=== PATIENT | female | born 1945 | race Caucasian/White ===

== ENCOUNTER 2018-01-05 16:53 | Emergency (ER) | payer MEDICARE, MEDICAID ==
[~2018-01-05] VITALS: Ht 157.5 cm; Wt 63.0 kg
[~2018-01-05 16:53] MED LIST: FAMO20TA7 PO; LISI40TA PO; LISI5TAB7 PO; NITR100C PO; ONDA4TAB13 SL; OXYC-307 PO; SERT50TA PO; SIMV40TA PO
[2018-01-05] MEDS ORDERED: ONDANSETRON ODT 4 MG ONE (17:52)
[2018-01-05] MEDS ORDERED: HYDROmorphone 2 MG/ML, 1ML ONE (17:53)
[2018-01-05] MEDS ORDERED: HYDROmorphone 1 MG/ML, 1ML IM ONE (18:00)
[2018-01-05] MEDS ORDERED: ONDANSETRON ODT 4 MG PO ONE (18:00)
[2018-01-05 20:27] VITALS: BP 126/79
== END 2018-01-05 20:30 | disposition home or self-care (01) ==
LOC: ED 20:24
DX: G89.29 Other chronic pain (principal); M25.551 Pain in right hip; F11.23 Opioid dependence with withdrawal; E11.9 Type 2 diabetes mellitus without complications; E78.5 Hyperlipidemia, unspecified; I10 Essential (primary) hypertension
CPT/HCPCS: 73502; 96372; 99284; J1170; Q0162

== ENCOUNTER 2019-02-20 13:09 | Emergency (ER) | payer MEDICARE, MEDICAID ==
[~2019-02-20] VITALS: Ht 157.5 cm; Wt 66.4 kg
[2019-02-20 13:53] VITALS: BP 179/93
[2019-02-20] MEDS ORDERED: ONDANSETRON ODT 4 MG PO ONE (15:00)
[2019-02-20] MEDS ORDERED: HYDROmorphone 1 MG/ML, 1ML INJ IM ONE (15:00)
[2019-02-20] MEDS ORDERED: OXYcodone/APAP 10/325MG TABLET ONE (15:23)
[2019-02-20] MEDS ORDERED: OXYcodone/APAP 10/325MG TABLET PO ONE (15:30)
== END 2019-02-20 15:36 | disposition home or self-care (01) ==
LOC: ED 15:32
DX: S39.012A Strain of muscle, fascia and tendon of lower back, initial encounter (principal); I10 Essential (primary) hypertension; E11.9 Type 2 diabetes mellitus without complications; X58.XXXA Exposure to other specified factors, initial encounter; Y93.89 Activity, other specified; Y92.89 Other specified places as the place of occurrence of the external cause; Y99.8 Other external cause status
CPT/HCPCS: 72110; 99283

== ENCOUNTER 2019-04-09 17:51 | Emergency (ER) | payer MEDICARE, MEDICAID ==
[~2019-04-09] VITALS: Ht 160 cm; Wt 74.0 kg
[2019-04-09 17:55] VITALS: BP 134/83
[2019-04-09] MEDS ORDERED: OXYC-307 PO (18:49)
[2019-04-09] MEDS ORDERED: OXYcodone/APAP 10/325MG TABLET PO ONE (19:00)
[2019-04-09] MEDS ORDERED: ONDANSETRON ODT 4 MG PO ONE (19:00)
[2019-04-09] MEDS ORDERED: OXYcodone/APAP 10/325MG TABLET ONE (19:07)
[2019-04-09] MEDS ORDERED: ONDANSETRON ODT 4 MG ONE (19:07)
[2019-04-09 19:09] LABS: BASOPHILS # (AUTO) 0.05 x10^3/uL (0-0.1); BASOPHILS % (AUTO) 1 % (0-1); EOSINOPHILS # (AUTO) 0.02 x10^3/uL (0-0.4); EOSINOPHILS % (AUTO) 0 % (1-7); LYMPHOCYTES # (AUTO) 1.62 x10^3/uL (1-3.4); LYMPHOCYTES % (AUTO) 26 % (22-44); MD NO; MEAN CORPUSCULAR HEMOGLOBIN 31.1 pg (27.0-34.8); MEAN CORPUSCULAR HGB CONC 33.8 g/dL (32.4-35.8); MEAN CORPUSCULAR VOLUME 92.1 fL (80-100); MEAN PLATELET VOLUME 11.1 fL (7.4-10.4); MONOCYTES # (AUTO) 0.62 x10^3/uL (0.2-0.8); MONOCYTES % (AUTO) 10 % (2-9); NEUTROPHILS # (AUTO) 3.93 x10^3/uL (1.8-6.8); NEUTROPHILS % (AUTO) 63 % (42-75); PLATELET COUNT 159 x10^3/uL (130-400); RED BLOOD COUNT 4.66 x10^6/uL (3.82-5.3); RED CELL DISTRIBUTION WIDTH 13.4 % (9.6-15.2)
[2019-04-09 19:18] LABS: ALBUMIN 3.9 g/dL (3.4-5.0); ANION GAP 8 mmol/L (5-15); CALCIUM 9.8 mg/dL (8.5-10.1); CHLORIDE 110 mmol/L (98-107); CREATININE 0.64 mg/dL (0.55-1.02)
[2019-04-09 20:18] LABS: MICROSCOPIC INDICATED
[2019-04-09 20:19] LABS: CULTURE INDICATED? YES
== END 2019-04-09 21:40 | disposition home or self-care (01) ==
LOC: ED 21:00
DX: S39.012A Strain of muscle, fascia and tendon of lower back, initial encounter (principal); G89.29 Other chronic pain; R10.2 Pelvic and perineal pain; I10 Essential (primary) hypertension; E11.9 Type 2 diabetes mellitus without complications; E78.5 Hyperlipidemia, unspecified; X58.XXXA Exposure to other specified factors, initial encounter; Y93.89 Activity, other specified; Y92.89 Other specified places as the place of occurrence of the external cause; Y99.8 Other external cause status
CPT/HCPCS: 36415; 80048; 81001; 82040; 85025; 87086; 99283; Q0162

== ENCOUNTER 2019-07-17 10:03 | Emergency (ER) | payer MEDICARE, MEDICAID ==
[~2019-07-17] VITALS: Ht 157.5 cm; Wt 68.2 kg
[2019-07-17] MEDS ORDERED: GABAPENTIN PO (10:11)
--- NOTE | 2019-07-17 10:12 | NUR ---
PT BIB [facility] FOR BLOOD IN URINE AND IN UNDERWEAR. PT NAD, RESP WNL, FCS NO SOB NOTED, VSS. SUAD KUNZ AT FOR EVAL AND DISCUSSING POC. PT RESTING IN [facility].
[2019-07-17] MEDS ORDERED: OXYcodone/APAP 5/325MG TABLET ONE (10:22)
[2019-07-17] MEDS ORDERED: OXYcodone/APAP 5/325MG TABLET PO ONE (10:30)
--- NOTE | 2019-07-17 10:34 | NUR ---
UA SENT, PT RESTING IN [facility], RESP WNL, VSS, FCS NO SOB, P/W/D. GIVEN WARM BLANEKT AND LIGHTS DIMMED FOR COMFORT, CALL LIGHT ON LAP. WCTM.
--- NOTE | 2019-07-17 11:02 | NUR ---
PT LAYING IN GURNEY, NAD, FCS NO SOB, P/W/D, VSS, RESP WNL, EYES OPEN, CALL LIGHT ON LAP. PT STATES THAT PAIN IS DECREASED AFTER BEING MEDICATED PER MAR. SEE MAR FOR INTERVENTION DETAILS.
[2019-07-17 11:07] LABS: CULTURE INDICATED? YES; MICROSCOPIC INDICATED
[2019-07-17 11:28] LABS: BASOPHILS # (AUTO) 0.04 x10^3/uL (0-0.1); BASOPHILS % (AUTO) 1 % (0-1); EOSINOPHILS # (AUTO) 0.14 x10^3/uL (0-0.4); EOSINOPHILS % (AUTO) 2 % (1-7); LYMPHOCYTES # (AUTO) 1.63 x10^3/uL (1-3.4); LYMPHOCYTES % (AUTO) 20 % (22-44); MD NO; MEAN CORPUSCULAR VOLUME 91.3 fL (80-100); MEAN PLATELET VOLUME 10.7 fL (7.4-10.4); MONOCYTES # (AUTO) 0.77 x10^3/uL (0.2-0.8); MONOCYTES % (AUTO) 9 % (2-9); NEUTROPHILS # (AUTO) 5.56 x10^3/uL (1.8-6.8); NEUTROPHILS % (AUTO) 68 % (42-75); PLATELET COUNT 122 x10^3/uL (130-400); RED BLOOD COUNT 4.24 x10^6/uL (3.82-5.3)
[2019-07-17 11:40] LABS: ALBUMIN 3.7 g/dL (3.4-5.0); ANION GAP 9 mmol/L (5-15); CALCIUM 9.1 mg/dL (8.5-10.1); CHLORIDE 108 mmol/L (98-107)
[2019-07-17 11:43] LABS: ALANINE AMINOTRANSFERASE 33 U/L (12-78); ALKALINE PHOSPHATASE 90 U/L (45-117); BILIRUBIN,TOTAL 0.8 mg/dL (0.2-1.0); CREATININE 0.96 mg/dL (0.55-1.02)
[2019-07-17] MEDS ORDERED: POTASSIUM CHLORIDE 20 MEQ TAB.ER.PRT PO ONE (12:00)
[2019-07-17] MEDS ORDERED: POTASSIUM CHLORIDE 20 MEQ TAB.ER.PRT ONE (12:04)
[2019-07-17 12:08] VITALS: BP 128/72
[2019-07-17] MEDS ORDERED: IBUPROFEN 200 MG TABLET ONE (12:14)
[2019-07-17] MEDS ORDERED: PHENAZOPYRIDINE 200 MG TABLET ONE (12:14)
--- NOTE | 2019-07-17 12:21 | NUR ---
Patient/Caregiver given discharge instructions and they have confirmed that they understand the instructions. Patient ambulatory with steady gait. Given snacks per pt request, pt is calling friend for a ride home. NAD , P/W/D, RESP WNL, VSS
[2019-07-17] MEDS ORDERED: IBUPROFEN 200 MG TABLET PO ONE (12:30)
[2019-07-17] MEDS ORDERED: PHENAZOPYRIDINE 200 MG TABLET PO ONE (12:30)
--- NOTE | 2019-07-17 12:42 | NUR ---
given taxi voucher to get home.
== END 2019-07-17 12:43 | disposition home or self-care (01) ==
LOC: ED 10:24
DX: N30.01 Acute cystitis with hematuria (principal); M54.5 Low back pain; R30.0 Dysuria; R10.30 Lower abdominal pain, unspecified; I10 Essential (primary) hypertension; E11.9 Type 2 diabetes mellitus without complications
CPT/HCPCS: 36415; 80053; 81001; 85025; 87086; 87186; 99284

== ENCOUNTER 2019-08-13 13:47 | Emergency (ER) | payer MEDICARE, MEDICAID ==
[~2019-08-13] VITALS: Ht 157.5 cm; Wt 67.0 kg
[~2019-08-13 13:47] MED LIST changes: +GABAPENTIN PO
--- NOTE | 2019-08-13 14:32 | NUR ---
TO ROOM FROM LOBBY
--- NOTE | 2019-08-13 14:52 | NUR ---
THIS PT IS COMING FROM HOME, WHERE SHE LIVES ALONE, SHE CALLED EMS TODAY. 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
[2019-08-13] MEDS ORDERED: OXYcodone/APAP 5/325MG TABLET ONE (15:49)
--- NOTE | 2019-08-13 15:57 | NUR ---
PT AMBULATORY TO BATHROOM, STEADY GAIT.
[2019-08-13 15:58] LABS: BASOPHILS # (AUTO) 0.02 x10^3/uL (0-0.1); BASOPHILS % (AUTO) 0 % (0-1); EOSINOPHILS # (AUTO) 0.16 x10^3/uL (0-0.4); EOSINOPHILS % (AUTO) 3 % (1-7); LYMPHOCYTES % (AUTO) 20 % (22-44); MD NO; MEAN CORPUSCULAR HEMOGLOBIN 31.4 pg (27.0-34.8); MEAN CORPUSCULAR HGB CONC 34.4 g/dL (32.4-35.8); MEAN CORPUSCULAR VOLUME 91.1 fL (80-100); MEAN PLATELET VOLUME 11.2 fL (7.4-10.4); MONOCYTES # (AUTO) 0.49 x10^3/uL (0.2-0.8); MONOCYTES % (AUTO) 8 % (2-9); NEUTROPHILS # (AUTO) 4.21 x10^3/uL (1.8-6.8); NEUTROPHILS % (AUTO) 69 % (42-75); PLATELET COUNT 130 x10^3/uL (130-400); RED BLOOD COUNT 4.05 x10^6/uL (3.82-5.3); RED CELL DISTRIBUTION WIDTH 13.4 % (9.6-15.2)
[2019-08-13] MEDS ORDERED: OXYcodone/APAP 5/325MG TABLET PO ONE (16:00)
[2019-08-13 16:09] LABS: ALANINE AMINOTRANSFERASE 31 U/L (12-78); ALBUMIN 3.6 g/dL (3.4-5.0); ANION GAP 8 mmol/L (5-15); CALCIUM 9.3 mg/dL (8.5-10.1); CHLORIDE 110 mmol/L (98-107); CREATININE 0.79 mg/dL (0.55-1.02)
--- NOTE | 2019-08-13 16:09 | NUR ---
PT AMBULATORY BACK TO BED, STEADY GAIT. PT STATES "I CAN'T EVEN WALK."
[2019-08-13 16:12] LABS: ALKALINE PHOSPHATASE 91 U/L (45-117); BILIRUBIN,TOTAL 0.5 mg/dL (0.2-1.0); TOTAL PROTEIN 6.7 g/dL (6.4-8.2)
--- NOTE | 2019-08-13 16:17 | NUR ---
PT LAYING IN BED, RESPIRATIONS EVEN AND UNLABORED, NO SIGNS OF DISTRESS, CALL LIGHT WITHIN REACH.
[2019-08-13 16:42] LABS: MICROSCOPIC INDICATED
--- NOTE | 2019-08-13 17:04 | NUR ---
PT LAYING IN BED, UPDATED ON POC. PT STATES "IF THEY'RE NOT GOING GIVE ME ANOTHER 5 (OF PERCOCET) F IT, I'M NOT EVER COMING BACK HERE, THIS IS RIDICULOUS."
[2019-08-13 17:05] VITALS: BP 176/86
[2019-08-13] MEDS ORDERED: POTASSIUM CHLORIDE 20 MEQ TAB.ER.PRT PO ONE (17:30)
--- NOTE | 2019-08-13 17:35 | NUR ---
PT AMBULATORY TO BATHROOM.
[2019-08-13] MEDS ORDERED: POTASSIUM CHLORIDE 20 MEQ TAB.ER.PRT ONE (17:52)
== END 2019-08-13 18:14 | disposition home or self-care (01) ==
LOC: ED 15:36
DX: E87.6 Hypokalemia (principal); R10.9 Unspecified abdominal pain; R31.29 Other microscopic hematuria; R30.0 Dysuria; G89.29 Other chronic pain; E78.5 Hyperlipidemia, unspecified; I10 Essential (primary) hypertension; E11.9 Type 2 diabetes mellitus without complications; R94.31 Abnormal electrocardiogram [ECG] [EKG]
CPT/HCPCS: 36415; 80053; 81001; 85025; 87077; 87086; 87186; 93005; 99284

== ENCOUNTER 2019-09-29 17:09 | Emergency (ER) | payer MEDICARE, MEDICAID ==
[~2019-09-29] VITALS: Ht 157.5 cm; Wt 70.0 kg
--- NOTE | 2019-09-29 17:17 | NUR ---
PT BIB EMS FOR LOW BACK PAIN. SAYS SHE "JERKED" AND FELT A STRAIN. PT AMBUALTED FROM EMS [facility] TO [facility] WITH CANE. PT SAYS SHE BROKE HER BACK YEARS AGO AND IT NEVER HEALED. PT DENIES LOC OR FALLING TO GROUND. PT IS RESTING IN [facility]. CONNECTED TO MONITORING EQUIPMENT. MD IS BEDSIDE FOR ASSESSMENT.
[2019-09-29] MEDS ORDERED: METHOCARBAMOL 750 MG TABLET ONE (17:36)
[2019-09-29] MEDS ORDERED: OXYcodone/APAP 5/325MG TABLET ONE (17:38)
[2019-09-29] MEDS ORDERED: IBUP-1222 PO (17:47)
--- NOTE | 2019-09-29 17:50 | NUR ---
Tech at bedside for EKG
--- NOTE | 2019-09-29 17:57 | NUR ---
Pt able to ambulate from bed to bathroom without issue. Using cane for stability
[2019-09-29] MEDS ORDERED: METHOCARBAMOL 750 MG TABLET PO ONE (18:00)
[2019-09-29] MEDS ORDERED: SODIUM CHLORIDE FLUSH 10ML SYR IVF ONE (18:00)
[2019-09-29] MEDS ORDERED: OXYcodone/APAP 5/325MG TABLET PO ONE (18:00)
[2019-09-29 18:03] LABS: BASOPHILS # (AUTO) 0.03 x10^3/uL (0-0.1); BASOPHILS % (AUTO) 1 % (0-1); EOSINOPHILS # (AUTO) 0.11 x10^3/uL (0-0.4); EOSINOPHILS % (AUTO) 2 % (1-7); LYMPHOCYTES # (AUTO) 1.05 x10^3/uL (1-3.4); LYMPHOCYTES % (AUTO) 18 % (22-44); MD NO; MEAN CORPUSCULAR HEMOGLOBIN 30.1 pg (27.0-34.8); MEAN CORPUSCULAR HGB CONC 33.4 g/dL (32.4-35.8); MEAN CORPUSCULAR VOLUME 90.3 fL (80-100); MEAN PLATELET VOLUME 11.3 fL (7.4-10.4); MONOCYTES # (AUTO) 0.46 x10^3/uL (0.2-0.8); MONOCYTES % (AUTO) 8 % (2-9); NEUTROPHILS % (AUTO) 72 % (42-75); PLATELET COUNT 109 x10^3/uL (130-400); RED BLOOD COUNT 3.81 x10^6/uL (3.82-5.3); RED CELL DISTRIBUTION WIDTH 13.5 % (9.6-15.2)
[2019-09-29 18:04] LABS: ALBUMIN 3.8 g/dL (3.4-5.0); ANION GAP 5 mmol/L (5-15); CALCIUM 8.8 mg/dL (8.5-10.1); CHLORIDE 112 mmol/L (98-107)
[2019-09-29 18:07] LABS: ALANINE AMINOTRANSFERASE 36 U/L (12-78); ALKALINE PHOSPHATASE 79 U/L (45-117); BILIRUBIN,TOTAL 0.5 mg/dL (0.2-1.0); CREATININE 0.75 mg/dL (0.55-1.02); TOTAL PROTEIN 6.7 g/dL (6.4-8.2)
[2019-09-29 18:25] VITALS: BP 128/67
[2019-09-29 18:25] LABS: MICROSCOPIC AUTO
--- NOTE | 2019-09-29 18:47 | NUR ---
Pt resting, no complaints
[2019-09-29] MEDS ORDERED: CEFTRIAXONE 1,000 MG IM ONE (19:00)
[2019-09-29] MEDS ORDERED: CEFTRIAXONE 1,000 MG ONE (19:11)
== END 2019-09-29 19:35 | disposition home or self-care (01) ==
LOC: ED 19:00
DX: N30.01 Acute cystitis with hematuria (principal); M54.5 Low back pain; R00.1 Bradycardia, unspecified
CPT/HCPCS: 36415; 80053; 81001; 85025; 87077; 87086; 93005; 96372; 99284; J0696; 87186

== ENCOUNTER 2019-10-23 10:43 | Emergency (ER) | payer MEDICARE, MEDICAID ==
[~2019-10-23] VITALS: Ht 157.5 cm; Wt 66.0 kg
[~2019-10-23 10:43] MED LIST changes: +IBUP-1222 PO
--- NOTE | 2019-10-23 10:48 | NUR ---
PT C/O LOW BACK PAIN, CHRONIC. WORSENED YESTERDAY. HAS BEEN MOSTLY SEDENTARY. IBUPROFEN AT 0630 TODAY. HAS [facility] [place] APPT END OF OCTOBER; APPT "ABOUT A MONTH AGO". PT STATES "I HAVE A BROKEN BACK", "I GOT SHOTS IN MY SPINE AND NOW I CAN WALK AGAIN" USES A CANE; INJECTIONS WERE NOT DONE THIS YEAR. PT STATES SHE HURT HER BACK 2 YEARS AGO. REPORTS HX OF HIP FX BILAT. PT STATES SHE'S BEEN GETTING PERCOCET FROM ED STAFF FOR PAIN FROM PREVIOUS VISITS.
[2019-10-23] MEDS ORDERED: LORA-445 PO (10:57)
[2019-10-23] MEDS ORDERED: MELO7.5T31 PO (10:57)
[2019-10-23] MEDS ORDERED: GABA-826 PO (10:57)
[2019-10-23] MEDS ORDERED: OXYcodone/APAP 5/325MG TABLET PO ONE (11:00)
[2019-10-23] MEDS ORDERED: OXYcodone/APAP 5/325MG TABLET ONE (11:06)
--- NOTE | 2019-10-23 11:07 | NUR ---
AMBULATORY TO & FROM [facility] W/OUT INCIDENT; GAIT SHUFFLING USING OWN CANE. PT STATES "I CAN'T PEE".
--- NOTE | 2019-10-23 11:10 | NUR ---
PERCOCET GIVEN PER EMAR
--- NOTE | 2019-10-23 11:14 | NUR ---
PT REQUESTED "A SMALL PRESCRIPTION" FOR PERCOCET. ERP WILL BE NOTIFIED.
[2019-10-23 12:13] LABS: MICROSCOPIC INDICATED
[2019-10-23 13:00] VITALS: BP 151/94
== END 2019-10-23 13:35 | disposition home or self-care (01) ==
LOC: ED 11:10
DX: G89.29 Other chronic pain (principal); M47.9 Spondylosis, unspecified; M51.36 Other intervertebral disc degeneration, lumbar region; N30.00 Acute cystitis without hematuria
CPT/HCPCS: 81001; 87077; 87086; 99283

== ENCOUNTER 2019-11-11 16:42 | Emergency (ER) | payer MEDICARE, MEDICAID ==
[~2019-11-11] VITALS: Ht 157.5 cm; Wt 65.0 kg
[~2019-11-11 16:42] MED LIST changes: +GABA-826 PO; +LORA-445 PO; +MELO7.5T31 PO
--- NOTE | 2019-11-11 16:58 | NUR ---
1L NS BOLUS STARTED.
[2019-11-11] MEDS ORDERED: ONDANSETRON 2MG/ML, 2ML IVPush ONE (17:00)
[2019-11-11] MEDS ORDERED: SODIUM CHLORIDE 0.9% 1,000ML IVBOLUS ONE ×2 (17:00→18:30)
[2019-11-11] MEDS ORDERED: SODIUM CHLORIDE FLUSH 10ML SYR IVF ONE (17:00)
--- NOTE | 2019-11-11 17:03 | NUR ---
FSBS 106.
--- NOTE | 2019-11-11 17:03 | NUR ---
PT BIB EMS FOR NAUSEA AND WEAKNESS X 2 DAYS. PT APPEARS TO BE DROWSEY AND SLURS SOME OF HER WORDS. 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 A 1 LITER BOLUS IS INFUSING AT THIS TIME. PT WAS RECENTYL TREATED FOR UTI. EKG COMPLETE. LABS DRAWN. X RAY TAKEN. PT DENIES TAKING BETA BLOCKERS
[2019-11-11] MEDS ORDERED: ONDANSETRON 2MG/ML, 2ML ONE (17:09)
[2019-11-11] MEDS ORDERED: ACETAMINOPHEN 500 MG TABLET ONE (17:09)
[2019-11-11] MEDS: ACETAMINOPHEN 500 MG TABLET PO ONE ×2 (17:10→17:12)
--- NOTE | 2019-11-11 17:13 | NUR ---
PT REFUSES TO TAKE TYLENOL, STATES SHE CAN'T SWALLOW AT THIS TIME. PT UNWILLING TO TRY TO DRINK WATER AT THIS TIME.
[2019-11-11 17:23] LABS: BASOPHILS # (AUTO) 0.04 x10^3/uL (0-0.1); BASOPHILS % (AUTO) 1 % (0-1); EOSINOPHILS # (AUTO) 0.09 x10^3/uL (0-0.4); EOSINOPHILS % (AUTO) 2 % (1-7); LYMPHOCYTES # (AUTO) 1.22 x10^3/uL (1-3.4); LYMPHOCYTES % (AUTO) 25 % (22-44); MD NO; MEAN CORPUSCULAR HEMOGLOBIN 31.1 pg (27.0-34.8); MEAN CORPUSCULAR HGB CONC 34.3 g/dL (32.4-35.8); MEAN CORPUSCULAR VOLUME 90.6 fL (80-100); MEAN PLATELET VOLUME 10.3 fL (7.4-10.4); MONOCYTES % (AUTO) 10 % (2-9); NEUTROPHILS % (AUTO) 63 % (42-75); PLATELET COUNT 106 x10^3/uL (130-400); RED BLOOD COUNT 3.34 x10^6/uL (3.82-5.3); RED CELL DISTRIBUTION WIDTH 13.8 % (9.6-15.2)
--- NOTE | 2019-11-11 17:29 | NUR ---
URINE SAMPLE COLLECTED.
[2019-11-11 17:31] LABS: ALANINE AMINOTRANSFERASE 28 U/L (12-78); ALBUMIN 3.4 g/dL (3.4-5.0); ANION GAP 8 mmol/L (5-15); CALCIUM 8.5 mg/dL (8.5-10.1); CHLORIDE 109 mmol/L (98-107); CREATININE 0.71 mg/dL (0.55-1.02)
[2019-11-11 17:35] LABS: ALKALINE PHOSPHATASE 66 U/L (45-117); BILIRUBIN,TOTAL 0.7 mg/dL (0.2-1.0); TOTAL PROTEIN 6.2 g/dL (6.4-8.2); TROPONIN I < 0.015 ng/mL (0.000-0.045)
[2019-11-11 17:46] LABS: MICROSCOPIC NOT IND
--- NOTE | 2019-11-11 18:06 | NUR ---
BP 82/40
[2019-11-11] MEDS ORDERED: KETOROLAC 30 MG/1 ML ONE (18:10)
--- NOTE | 2019-11-11 18:11 | NUR ---
BP 82/40, PT REPORTS BACK PAIN HOWEVER STILL REFUSING TYLENOL, REPORTED TO ERMD. PER ERMD GIVE 1L NS BOLUS AND 15MG IV TORADOL.
[2019-11-11 18:21] VITALS: BP 97/53
[2019-11-11] MEDS ORDERED: KETOROLAC 30 MG/1 ML IVPush ONE (18:30)
[2019-11-11] MEDS ORDERED: OXYC-302 PO (18:33)
--- NOTE | 2019-11-11 18:45 | NUR ---
PT WISHES TO LEAVE AGAINST MEDICAL ADVICE. AMA FORM SIGNED BY PT.
--- NOTE | 2019-11-11 19:18 | NUR ---
PT WHEELED OUT TO DC DESK, PT STATES SHE WILL CALL [facility] FOR A RIDE HOME.
== END 2019-11-11 19:35 | disposition left against medical advice (07) ==
LOC: ED 19:28
DX: I95.0 Idiopathic hypotension (principal); R53.1 Weakness; R11.0 Nausea; R00.1 Bradycardia, unspecified; R50.9 Fever, unspecified; I10 Essential (primary) hypertension; E11.9 Type 2 diabetes mellitus without complications; G89.29 Other chronic pain
CPT/HCPCS: 71045; 80053; 81003; 82962; 83605; 83735; 84145; 84484; 85025; 93005; 96361; 96374; 96375; 99285; J1885; J2405; J7030

== ENCOUNTER 2020-01-29 13:12 | Observation (INO) | payer MEDICARE, MEDICAID ==
[~2020-01-29] VITALS: Ht 157.5 cm; Wt 65.7 kg
[~2020-01-29 13:12] MED LIST changes: +OXYC-302 PO
[2020-01-29] MEDS ORDERED: HYDROcodone/APAP 5/325 TABLET ONE (14:19)
[2020-01-29] MEDS ORDERED: HYDROcodone/APAP 5/325 TABLET PO ONE (14:30)
[2020-01-29] MEDS ORDERED: SODIUM CHLORIDE FLUSH 10ML SYR IVF ONE (14:30)
[2020-01-29 14:45] LABS: BASOPHILS % (AUTO) 1 % (0-1); EOSINOPHILS % (AUTO) 0 % (1-7); LYMPHOCYTES % (AUTO) 14 % (22-44); MEAN CORPUSCULAR HEMOGLOBIN 30.3 pg (27.0-34.8); MEAN CORPUSCULAR HGB CONC 33.5 g/dL (32.4-35.8); MEAN PLATELET VOLUME 10.7 fL (7.4-10.4); MONOCYTES % (AUTO) 9 % (2-9); NEUTROPHILS % (AUTO) 76 % (42-75); PLATELET COUNT 151 x10^3/uL (130-400); RED CELL DISTRIBUTION WIDTH 13.3 % (9.6-15.2)
[2020-01-29 14:55] LABS: MD NO
[2020-01-29 15:11] LABS: ALANINE AMINOTRANSFERASE 61 U/L (12-78); ALBUMIN 3.8 g/dL (3.4-5.0); ALKALINE PHOSPHATASE 140 U/L (45-117); ANION GAP 8 mmol/L (5-15); BILIRUBIN,TOTAL 0.7 mg/dL (0.2-1.0); CHLORIDE 109 mmol/L (98-107); CREATININE 0.77 mg/dL (0.55-1.02); TOTAL PROTEIN 7.5 g/dL (6.4-8.2)
[2020-01-29] MEDS ORDERED: KETOROLAC 30 MG/1 ML IVPush ONE (17:30)
[2020-01-29] MEDS ORDERED: DIAZEPAM 5 MG TABLET PO/NG ONE (17:30)
[2020-01-29 17:43] LABS: MICROSCOPIC AUTO
[2020-01-29] MEDS ORDERED: POTASSIUM CHLORIDE 20 MEQ TAB.ER.PRT PO ONE (18:00)
[2020-01-29] MEDS ORDERED: IBUPROFEN 600 MG TABLET PO PRN (19:30)
[2020-01-29] MEDS ORDERED: DOCUSATE 100 MG CAPSULE PO PRN (19:30)
[2020-01-29] MEDS ORDERED: BISACODYL 10 MG SUPP PR PRN (19:30)
[2020-01-29] MEDS ORDERED: ONDANSETRON 2MG/ML, 2ML IVPush PRN (19:30)
[2020-01-29] MEDS ORDERED: POLYETHYLENE GLYCOL 17 GM PACKET PO PRN (19:30)
[2020-01-29] MEDS ORDERED: ONDANSETRON ODT 4 MG PO PRN (19:30)
[2020-01-29] MEDS ORDERED: ENALAPRILAT 1.25 MG/ML, 2ML IVPush PRN (19:30)
[2020-01-29] MEDS ORDERED: ACETAMINOPHEN 325 MG TABLET PO PRN (19:30)
[2020-01-29 19:42] VITALS: BP 140/72
[2020-01-29] MEDS: OXYcodone/APAP 5/325MG TABLET PO PRN (21:05)
[2020-01-29] MEDS: HEPARIN 5,000 UNITS/ML, 1ML SQ SCH (21:06)
[2020-01-30 02:29] VITALS: BP 116/73
[2020-01-30 05:02] LABS: BASOPHILS % (AUTO) 1 % (0-1); EOSINOPHILS % (AUTO) 2 % (1-7); LYMPHOCYTES % (AUTO) 23 % (22-44); MEAN CORPUSCULAR HEMOGLOBIN 30.8 pg (27.0-34.8); MEAN CORPUSCULAR HGB CONC 34.4 g/dL (32.4-35.8); MEAN PLATELET VOLUME 10.6 fL (7.4-10.4); MONOCYTES % (AUTO) 10 % (2-9); NEUTROPHILS % (AUTO) 64 % (42-75); PLATELET COUNT 126 x10^3/uL (130-400); RED BLOOD COUNT 4.17 x10^6/uL (3.82-5.3); RED CELL DISTRIBUTION WIDTH 13.7 % (9.6-15.2)
[2020-01-30 05:06] LABS: MD NO
[2020-01-30] MEDS: HEPARIN 5,000 UNITS/ML, 1ML SQ SCH ×2 (05:32→13:13)
[2020-01-30] MEDS: OXYcodone/APAP 5/325MG TABLET PO PRN ×2 (05:32→13:18)
[2020-01-30 06:58] VITALS: BP 144/83
[2020-01-30 08:56] LABS: ALANINE AMINOTRANSFERASE 65 U/L (12-78); ALBUMIN 3.7 g/dL (3.4-5.0); ANION GAP 4 mmol/L (5-15); CHLORIDE 111 mmol/L (98-107); CREATININE 0.73 mg/dL (0.55-1.02)
[2020-01-30 08:58] LABS: ALKALINE PHOSPHATASE 132 U/L (45-117); BILIRUBIN,TOTAL 0.6 mg/dL (0.2-1.0); TOTAL PROTEIN 7.1 g/dL (6.4-8.2)
[2020-01-30 12:00] VITALS: BP 154/87
[2020-01-30 12:28] VITALS: BP_SYST 143; BP_SYST 148; BP_DIAS 81; BP_DIAS 82; BP_DIAS 83
[2020-01-30] MEDS ORDERED: OXYC-302 PO (13:45)
== END 2020-01-30 15:10 | disposition home or self-care (01) ==
LOC: ED 17:36 → EDIP 17:50 → INTOOBSV 17:50 → 4NW 18:40 → DCLOUNGE 01-30 14:58
PROVIDERS: ADMIT Family Medicine; ATTEND Family Medicine
DX: R53.1 Weakness (principal); G89.29 Other chronic pain; M54.5 Low back pain; E11.65 Type 2 diabetes mellitus with hyperglycemia; R32 Unspecified urinary incontinence; R74.8 Abnormal levels of other serum enzymes; M48.061 Spinal stenosis, lumbar region without neurogenic claudication; J45.909 Unspecified asthma, uncomplicated; I10 Essential (primary) hypertension; R79.89 Other specified abnormal findings of blood chemistry; R53.81 Other malaise; Z79.899 Other long term (current) drug therapy; W01.0XXA Fall on same level from slipping, tripping and stumbling without subsequent striking against object, initial encounter; Y93.89 Activity, other specified; Y92.009 Unspecified place in unspecified non-institutional (private) residence as the place of occurrence of the external cause
CPT/HCPCS: 36415; 72131; 80053; 81001; 82550; 83036; 85025; 93005; 96372; 96374; 97163; 97166; 99284; G0378; J1644; J1885

== ENCOUNTER 2020-02-01 13:06 | Emergency (ER) | payer MEDICARE, MEDICAID ==
[~2020-02-01] VITALS: Ht 157.5 cm; Wt 65.0 kg
[2020-02-01] MEDS ORDERED: CYCLOBENZAPRINE 10 MG TABLET PO ONE (13:30)
[2020-02-01] MEDS ORDERED: ACETAMINOPHEN 500 MG TABLET PO ONE (13:30)
[2020-02-01] MEDS ORDERED: KETOROLAC 30 MG/1 ML IM ONE (13:30)
--- NOTE | 2020-02-01 14:00 | NUR ---
pt in bed no distress, back pain resolving
[2020-02-01 15:54] VITALS: BP 152/87
== END 2020-02-01 16:00 | disposition home or self-care (01) ==
LOC: ED 13:57
DX: S39.012A Strain of muscle, fascia and tendon of lower back, initial encounter (principal); E11.9 Type 2 diabetes mellitus without complications; E78.5 Hyperlipidemia, unspecified; X58.XXXA Exposure to other specified factors, initial encounter; Y93.89 Activity, other specified; Y92.89 Other specified places as the place of occurrence of the external cause; Y99.8 Other external cause status
CPT/HCPCS: 96372; 99283; J1885

== ENCOUNTER 2020-07-28 16:31 | Emergency (ER) | payer MEDICARE, MEDICAID ==
[~2020-07-28] VITALS: Ht 157.5 cm; Wt 66.8 kg
[~2020-07-28 16:31] MED LIST changes: +CEFD300C37 PO; +DOCU100C33 PO; +GABAPENTIN; +LINE600T15 PO; -LISI40TA PO; +LISI40TA9 PO; +MELA5LIQ2 PO; +NITR100C6 PO; -OXYC-302 PO; -OXYC-307 PO; +OXYC-380 PO; +OXYC1TAB14 PO
[2020-07-28] MEDS ORDERED: KETOROLAC 30 MG/1 ML IM ONE (17:00)
--- NOTE | 2020-07-28 17:46 | NUR ---
PT TO RM FROM LOBBY
--- NOTE | 2020-07-28 18:15 | NUR ---
assumed care of pt. pt here for chronic pain to back and L leg. pt hsa no injury. pt was seen here 5 days ago for same and is still wearing her ID bracelet from the last visit. BAKARI. pt states that the last time she was here she got percocet. no family at bedside
[2020-07-28] MEDS ORDERED: KETOROLAC 30 MG/1 ML ONE (18:22)
--- NOTE | 2020-07-28 18:52 | NUR ---
report to Mario WOODS
--- NOTE | 2020-07-28 18:53 | NUR ---
received report from PEGGY Smith. patient provided with new shorts/ pants and taxi voucher. discharged with instruction. verbalized understanding.
[2020-07-28 19:05] VITALS: BP 123/78
== END 2020-07-28 19:07 | disposition home or self-care (01) ==
LOC: ED 16:35
DX: M79.669 Pain in unspecified lower leg (principal); M54.5 Low back pain; G89.29 Other chronic pain; E11.9 Type 2 diabetes mellitus without complications; E78.5 Hyperlipidemia, unspecified; I10 Essential (primary) hypertension
CPT/HCPCS: 96372; 99283; J1885

== ENCOUNTER 2020-08-03 16:47 | Emergency (ER) | payer MEDICARE, MEDICAID ==
[~2020-08-03] VITALS: Ht 170.2 cm; Wt 90.0 kg
--- NOTE | 2020-08-03 16:54 | NUR ---
PT BIBA. PER EMS PT HAD A GLF TODAY, PER PT "MY LEGS GAVE OUT". PT DENIES LOC OR BLOOD THINNERS. PT STATES SHE HAS DIFFUSE PAIN OVER BODY. PT RESTING IN GURNEY, MONITORING IN PLACE, PT STATES ONLY NEED IS PAIN MEDICATION, WCTM.
[2020-08-03 18:12] VITALS: BP 121/75
[2020-08-03] MEDS ORDERED: KETOROLAC 30 MG/1 ML ONE (19:19)
[2020-08-03] MEDS ORDERED: KETOROLAC 30 MG/1 ML IM ONE (19:30)
== END 2020-08-03 19:55 | disposition home or self-care (01) ==
LOC: ED 17:09
DX: S16.1XXA Strain of muscle, fascia and tendon at neck level, initial encounter (principal); R51.9 Headache, unspecified; I10 Essential (primary) hypertension; E11.9 Type 2 diabetes mellitus without complications; E78.5 Hyperlipidemia, unspecified; W01.0XXA Fall on same level from slipping, tripping and stumbling without subsequent striking against object, initial encounter; Y93.89 Activity, other specified; Y92.89 Other specified places as the place of occurrence of the external cause; Y99.8 Other external cause status
CPT/HCPCS: 70450; 72125; 99285